=== PATIENT | male | born 1980 | race Two or more races ===

== ENCOUNTER 2018-11-08 10:52 | Observation (INO) | payer OTHER ==
[2018-11-08] MEDS ORDERED: TDAP ADULT 0.5 ML INJ (BOOSTRIX) IM ONE (11:08)
[2018-11-08] MEDS ORDERED: ceFAZolin 2 GM/DEXTROSE 100 ML IV ONE (11:13)
--- NOTE | 2018-11-08 11:13 | EDPHY ---
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 Not through and through. Occurred shortly prior to arrival. Last oral intake 7:00 a.m. consisting of piece of bread PRIMARY CARE PROVIDER:Worker's compensation REVIEW OF SYSTEMS: 10 systems reviewed and negative with the exception of the elements mentioned in the history of present illness PAST MEDICAL & SURGICAL HISTORY: No pertinent medical or surgical history SOCIAL HISTORY: Nonsmoker. 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 Appears anxious. 2) HEAD: Normocephalic, atraumatic 3) HEENT: Pupils equal, round, reactive to light bilaterally. Sclera anicteric. 4) NECK: Full range of motion, no meningeal signs. 5) LUNGS: Clear auscultation bilaterally, no wheezes, no rhonchi, no retractions. 6) HEART: Regular rate and rhythm, no murmur, no heave, no gallop. 7) ABDOMEN: No guarding, no rebound, no focal tenderness, negative McBurney's, negative Witt's, negative Rovsing's, negative peritoneal sign, 8) MUSCULOSKELETAL: Left upper extremity: White paint on hand. There is a non through and through puncture wound overlying the 3rd metacarpal. Unwilling or unable to perform range of motion secondary to pain. 9) BACK: No CVA tenderness, no midline vertebral tenderness, no fluctuance, no step-off, no obvious trauma, no visual or palpable abnormality. 10) SKIN: No rash, no petechiae. 11) Psychiatric: Patient is oriented X 3, there is no agitation. DIFFERENTIAL DIAGNOSIS: In no particular order including but not limited to fracture, high-pressure paint puncture injury, cellulitis - Personal History Current Tetanus/Diphtheria Vaccine: No Current Tetanus Diphtheria and Acellular Pertussis (TDAP): No - Medical/Surgical History Hx Asthma: No Hx Chronic Respiratory Disease: No Hx Diabetes: No Hx Cardiac Disease: No Hx Renal Disease: No Hx Cirrhosis: No Hx Alcoholism: No Hx HIV/AIDS: No Hx Splenectomy or Spleen Trauma: No - Social History Smoking Status: Never smoked Constitutional: Initial Vital Signs Temperature (C) 36.8 C 11/08/18 10:56 Heart Rate 64 11/08/18 10:56 Respiratory Rate 16 11/08/18 10:56 Blood Pressure 160/103 H 11/08/18 10:56 O2 Sat (%) 96 11/08/18 10:56 O2 Delivery Mode Room Air O2 (L/minute) 2 Allergies/Adverse Reactions: No Known Allergies Allergy (Unverified 11/08/18 10:56) Home Medications: Medication Instructions Recorded NK [No Known Home Meds] 11/08/18 Medical Decision Making - Diagnostics Imaging Results: Imaging Impressions Hand X-Ray 11/08/18 11:09 Impression: Soft tissue injury. Images reviewed myself ED Course/Re-evaluation: 11:11 a.m.: I have evaluated the patient discussed case with secondary supervising physician Dr. Parikh in the emergency department. On-call hand surgery has been paged. Patient remains NPO since 7:00 a.m. today. Will check the x-ray and administer iv antibiotics 11:17 a.m.: Consultation with on-call hand surgery Dr. Rashel Huggins who will plan taking the patient operating room this afternoon. Request hospitalist admit patient. - Data Points Laboratory Results: Laboratory Results 11/08/18 11:15 11/08/18 11:15 11/08/18 11/08/18 11:15 11:15 WBC 9.23 10^3/uL 10^3/uL (3.80-9.50) RBC 4.93 10^6/uL 10^6/uL (4.40-6.38) Hgb 15.2 g/dL g/dL (13.7-17.5) Hct 44.1 % % (40.0-51.0) MCV 89.5 fL fL (81.5-99.8) MCH 30.8 pg pg (27.9-34.1) MCHC 34.5 g/dL g/dL (32.4-36.7) RDW 12.7 % % (11.5-15.2) Plt Count 343 10^3/uL 10^3/uL (150-400) MPV 9.5 fL fL (8.7-11.7) Neut % (Auto) 76.7 % H % (39.3-74.2) Lymph % (Auto) 13.4 % L % (15.0-45.0) Gates % (Auto) 5.2 % % (4.5-13.0) Eos % (Auto) 3.9 % % (0.6-7.6) Baso % (Auto) 0.5 % % (0.3-1.7) Nucleat RBC Rel Count 0.0 % % (0.0-0.2) Absolute Neuts (auto) 7.07 10^3/uL H 10^3/uL (1.70-6.50) Absolute Lymphs (auto) 1.24 10^3/uL 10^3/uL (1.00-3.00) Absolute Monos (auto) 0.48 10^3/uL 10^3/uL (0.30-0.80) Absolute Eos (auto) 0.36 10^3/uL 10^3/uL (0.03-0.40) Absolute Basos (auto) 0.05 10^3/uL 10^3/uL (0.02-0.10) Absolute Nucleated RBC 0.00 10^3/uL 10^3/uL (0-0.01) Immature Gran % 0.3 % % (0.0-1.1) Immature Gran # 0.03 10^3/uL 10^3/uL (0.00-0.10) Sodium 137 mEq/L mEq/L (135-145) Potassium 3.9 mEq/L mEq/L (3.5-5.2) Chloride 103 mEq/L mEq/L (97-110) Carbon Dioxide 26 mEq/l mEq/l (22-31) Anion Gap 8 mEq/L mEq/L (6-14) BUN 17 mg/dL mg/dL (7-23) Creatinine 0.9 mg/dL mg/dL (0.7-1.3) Estimated GFR > 60 Glucose 124 mg/dL H mg/dL (70-100) Calcium 9.4 mg/dL mg/dL (8.5-10.4) Medications Given: Amlodipine Besylate (Norvasc) 2.5 mg PO DAILY DARBY Stop: 05/07/19 13:59 Last Admin: 11/08/18 14:08 Dose: 2.5 mg Hydromorphone HCl (Dilaudid) 0.2 mg IVP Q2HRS PRN PRN Reason: Pain, Severe Unable to Take PO Stop: 11/18/18 14:01 Last Admin: 11/08/18 14:12 Dose: 0.2 mg Lactated Ringer's (Lr) 1,000 mls @ 125 mls/hr IV CONT DARBY Stop: 05/07/19 12:29 Last Admin: 11/08/18 12:23 Dose: 1,000 mls Discontinued Medications Diphtheria/Tetanus/Acell Pertussis (Boostrix) 0.5 ml IM .ONCE ONE Stop: 11/08/18 11:09 Last Admin: 11/08/18 11:15 Dose: 0.5 ml Hydromorphone HCl (Dilaudid) 1 mg IVP EDNOW ONE Stop: 11/08/18 11:20 Last Admin: 11/08/18 11:23 Dose: 1 mg Hydromorphone HCl (Dilaudid) 1 mg IVP EDNOW ONE Stop: 11/08/18 12:11 Last Admin: 11/08/18 12:23 Dose: 1 mg Cefazolin Sodium/Dextrose (Ancef) 100 mls @ 200 mls/hr IV EDNOW ONE PRN Reason: Protocol Stop: 11/08/18 11:42 Last Admin: 11/08/18 11:23 Dose: 100 mls Lactated Ringer's (Lr) 1,000 mls @ 0 mls/hr IV ONCE ONE PRN Reason: KVO Stop: 11/08/18 14:56 Last Admin: 11/08/18 15:02 Dose: 1,000 mls Ondansetron HCl (Zofran) 4 mg IVP EDNOW ONE Stop: 11/08/18 11:20 Last Admin: 11/08/18 11:23 Dose: 4 mg Departure - Departure Disposition: [facility] Acute Clinical Impression: High pressure injury of left hand Condition: Fair
[2018-11-08] MEDS ORDERED: ONDANSETRON 4 MG/2 ML VIAL IVP ONE (11:19)
[2018-11-08] MEDS ORDERED: HYDROmorphONE/DILAUDID 1 MG/ML INJ IVP ONE ×2 (11:19→12:10)
[2018-11-08 11:35] LABS: PLATELET COUNT 343 10^3/uL (150-400)
[2018-11-08] MEDS ORDERED: LR 1,000 ML IV SCH (12:30)
[2018-11-08] MEDS ORDERED: BUPIVACAINE 0.5% 30 ML SDV ONE (13:22)
[2018-11-08] MEDS ORDERED: BACITRACIN 50,000 UNITS/10 ML SYR IRR ONE (13:22)
[2018-11-08] MEDS ORDERED: LIDOCAINE 1% 300 MG/30 ML SDV ONE (13:22)
[2018-11-08] MEDS: HYDROmorphONE/DILAUDID 1 MG/ML INJ IVP PRN ×3 (14:12→21:55)
[2018-11-08] MEDS ORDERED: ACETAMINOPHEN 325 MG TAB PO PRN (14:26)
[2018-11-08] MEDS ORDERED: ONDANSETRON DISINTEGRATING 4 MG TAB PO PRN (14:26)
[2018-11-08] MEDS ORDERED: LR 1,000 ML IV ONE (14:55)
[2018-11-08] MEDS ORDERED: MIDAZOLAM 2 MG/2 ML VIAL IVP ONE (15:03)
--- NOTE | 2018-11-08 15:03 | PDANEPAE ---
ANE History of Present Illness 37 yo for i and d hand ANE Past Medical History - Cardiovascular History Hx Hypertension: No Hx Arrhythmias: No Hx Chest Pain: No Hx Coronary Artery / Peripheral Vascular Disease: No Hx CHF / Valvular Disease: No Hx Palpitations: No - Pulmonary History Hx COPD: No Hx Asthma/Reactive Airway Disease: No Hx Recent Upper Respiratory Infection: No Hx Oxygen in Use at Home: No Hx Sleep Apnea: No Sleep Apnea Screening Result - Last Documented: Negative - Endocrine History Hx Diabetes: No - Chronic Pain History Chronic Pain: No ANE Review of Systems Review of Systems: - Exercise capacity METS (RN): 5 METS ANE Patient History - Allergies Allergies/Adverse Reactions: No Known Allergies Allergy (Unverified 11/08/18 10:56) - Home Medications Home medications: home medication list seen and reviewed Home Medications: NK [No Known Home Meds] 11/08/18 [Last Taken Unknown] - NPO status NPO Status: no food or drink >8 hours NPO Since - Liquids (Date): 11/08/18 NPO Since - Liquids (Time): 07:00 NPO Since - Solids (Date): 11/08/18 NPO Since - Solids (Time): 07:00 - Anes Hx Anes Hx: no prior problems - Smoking Hx Smoking Status: Never smoked ANE Labs/Vital Signs - Labs Result Diagrams: 11/08/18 11:15 11/08/18 11:15 - Vital Signs Blood Pressure: 153/100 Heart Rate: 62 Respiratory Rate: 16 O2 Sat (%): 97 Height: 5 ft 2.99 in Weight: 63.503 kg ANE Physical Exam - Airway Neck exam: FROM Mallampati Score: Class 2 Mouth exam: normal dental/mouth exam - Pulmonary Pulmonary: no respiratory distress - Cardiovascular Cardiovascular: regular rate and rhythym - ASA Status ASA Status: I ANE Anesthesia Plan Anesthesia Plan: GA w LMA
[2018-11-08] MEDS ORDERED: fentaNYL 100 MCG/2 ML INJ ONE ×2 (15:36→18:43)
[2018-11-08] MEDS ORDERED: PROPOFOL/EMULSION 500 MG/50 ML BOTTLE IV ONE (15:37)
--- NOTE | 2018-11-08 15:48 | GHP ---
[f rep st] HISTORY AND PHYSICAL DATE OF ADMISSION: 11/08/2018 CHIEF COMPLAINT: Left hand pain. HISTORY OF PRESENT ILLNESS: The patient is a 37-year-old gentleman with no significant past medical history. 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 He is Chinese- speaking only, and my interview was done through the lumber piler. He was using a spray gun to paint the inside of a client's home. The spray gun got blocked and he tried to open it and unplug it. The pressure of the gun went into the palm of his hand and it punctured, leaving a small tear and pain to his left palm area of his hand. It happened earlier this morning. He was given a dose of Ancef in the emergency room as well as a tetanus shot. He has some paint around the left eyelid, but he said the paint did not scatter into his eyes or any were else. It went directly into his left hand area. He denies any chest pain, shortness of breath, rashes, or sores. No changes in vision or hearing. Denies any cardiac issues. No shortness of breath. Appetite is good. PAST MEDICAL HISTORY: None. PAST SURGICAL HISTORY: None. FAMILY HISTORY: His mom is ill. She is age 65. She has diabetes and hypertension. His father is unknown. SOCIAL HISTORY: He is not in a relationship. He does not smoke. He drinks approximately 8 beers a week, but does not drink regularly. 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 He lives with his brother. ALLERGIES: No known allergies. MEDICATIONS: None. PHYSICAL EXAM: GENERAL: The patient is a 37-year-old male who does not appear to be in any type of acute distress. VITAL SIGNS: Blood pressure is 174/110, heart rate is 58, respiratory rate of 16, O2 saturation on 1 L 100%, temperature is 37 degree Celsius. EYES: Pupils are equal and react. He has some conjunctival injection noted throughout his left eye. EOMs are intact. ENT: Normal ears. Hearing intact. He has metal-type braces on his top teeth. NECK: Trachea is midline. CARDIOVASCULAR: He is bradycardic and regular rate and rhythm. No murmurs, rubs, or gallops noted. CHEST: Lungs normal respiratory effort. Clear without wheezing, rales, or rhonchi. ABDOMEN: Soft , nontender. SKIN: His left hand has a puncture wound approximately half an inch in length. His hand is slightly overall swollen. He has white pain scattered to the palm of the hand and on his fingertips. PSYCHIATRIC: He is alert and oriented. Normal mood, affect. Normal judgment, insight, and memory. MUSCULOSKELETAL: He has equal upper and lower extremity strength. DATA: Reviewed. A CBC shows white blood cell count of 9.23, hemoglobin 15.2, hematocrit of 44.1, platelet count 343. Chemistry: Sodium is 137, potassium 3.9, chloride of 103, CO2 of 26, BUN of 17, creatinine 0.9, glucose of 124, calcium of 9.5. A hand x-ray was performed, which shows a soft tissue injury without any fracture or dislocation. There is no subcutaneous gas or radiopaque foreign material in the soft tissues of the hand. PLAN/ASSESSMENT: 1. Left hand puncture wound with residual paint. Dr. Vieyra will see the patient later today and will take him to the operating room this afternoon. 2. Hypertension. Will give him a low dose of Norvasc. He has a family history of hypertension, and is not currently getting any type of treatment or followup care. I will ask for case management to get him aligned with followup care. 3. Hyperglycemia, stressed induced. 4. Deep venous thrombosis prophylaxis low risk. 5. Length of stay. He will require less than a 2-midnight stay, which will make him observation status. This can be further evaluated in the morning. /[id number]/MODL MTDD
[2018-11-08] MEDS ORDERED: ceFAZolin 1 GM VIAL ONE (16:14)
[2018-11-08] MEDS ORDERED: LIDO/EPI 1% **Not for Epidural 20 ML MDV ONE (17:42)
[2018-11-08] MEDS ORDERED: LIDOCAINE/EPINEPHRINE 0.5% 50 ML MDV ONE (17:50)
[2018-11-08] MEDS ORDERED: NALOXONE HCL 0.4 MG/ML INJ IVP PRN (18:39)
[2018-11-08] MEDS ORDERED: HYDROmorphONE/DILAUDID 1 MG/ML INJ IVP PRN (18:39)
[2018-11-08] MEDS ORDERED: ONDANSETRON 4 MG/2 ML VIAL IVP PRN (18:39)
[2018-11-08] MEDS: fentaNYL 100 MCG/2 ML INJ IVP PRN ×2 (18:45→18:56)
[2018-11-08] MEDS: IBUPROFEN 200 MG TAB PO PRN (19:42)
--- NOTE | 2018-11-08 22:29 | SOAPPROG ---
SOAP Progress Note Assessment/Plan: Assessment: HPI: 38 year old male with a left hand volar long finger metacarpal high-pressure paint gun injection injury with latex based paint earlier today (11/08/18) at work. PE: LUE: 3mm puncture wound overlying the volar aspect of the left long finger metacarpal +FDS, FDP, FPL, EPL, DI, PI +M/R/U SILT 2+ radial and ulnar pulses Assessment and Plan: 38 year old male with a left hand volar long finger metacarpal high-pressure paint gun injection injury with latex based paint earlier today (11/08/18) at work. -I have discussed with the patient the risks, benefits, alternative and complications associated with both non-operative and operative (specifically, left hand irrigation and debridement) forms of treatment and I am recommending emergent operative intervention -He fully understands the risks, benefits, alternative and complications associated with both forms of treatment and wishes to proceed with emergent operative intervention -He has signed the informed consent form for surgery and surgery will be performed as soon as the OR is available 11/08/18 15:30 Objective: Vital Signs Temp Pulse Resp BP Pulse Ox 36.8 C 74 16 143/92 H 96 11/08/18 21:59 11/08/18 21:59 11/08/18 21:59 11/08/18 21:59 11/08/18 21:59 11/07/18 11/08/18 11/09/18 05:59 05:59 05:59 Intake Total 1965 Output Total 650 Balance 1315 ICD10 Worksheet Patient Problems: Problems Problem Status Onset High pressure injury of left hand Acute
--- NOTE | 2018-11-08 22:31 | POSTOPPROG ---
Post Op Note Date of Operation: 11/08/18 Surgeon: Dong Huggins Polysomnograph Tech: None Anesthesiologist: Polly Lawrence MD Anesthesia: GET(General Endotracheal) Pre-op Diagnosis: Left hand pain-gun high-pressure injectio injury Post-op Diagnosis: Left hand pain-gun high-pressure injectio injury Indication: Left hand pain-gun high-pressure injectio injury Procedure: Left hand irrigation and debridement with CTR Inf/Abcess present in the surg proc area at time of surgery?: No Depth: Deep Incisional (Fascial) EBL: Minimal Complications: None Drains: Other (one 1/4 inch nu-gauze packing strip)
--- NOTE | 2018-11-08 22:33 | SOAPPROG ---
SOAP Progress Note Assessment/Plan: Assessment: HPI: 38 year old male now POD#0 from left hand irrigation and debridement after a high-pressure pain gun injection injury on 11/08/18 PE: LUE: Dressing and splint are CDI +FDS, FDP, FPL, EPL, DI, PI +M/R/U SILT < 2 second capillary refill Assessment and Plan: 38 year old male now POD#0 from left hand irrigation and debridement after a high-pressure pain gun injection injury on 11/08/18 -Remain in current splint and dressing for the next two days -Admit to medicine for intravenous antibiotics per ID recommendations -Keep the left hand clean and dry -Encourage immediate left thumb and finger ROM -Member of hand team to remove packing strip on 11/10/18 11/08/18 22:31 Objective: Vital Signs Temp Pulse Resp BP Pulse Ox 36.8 C 74 16 143/92 H 96 11/08/18 21:59 11/08/18 21:59 11/08/18 21:59 11/08/18 21:59 11/08/18 21:59 11/07/18 11/08/18 11/09/18 05:59 05:59 05:59 Intake Total 1965 Output Total 650 Balance 1315 ICD10 Worksheet Patient Problems: Problems Problem Status Onset High pressure injury of left hand Acute
[2018-11-08] MEDS: AMPICILLIN/SULBACTAM 3 GM in NS 100 ML IV SCH (23:44)
[2018-11-08] MEDS: oxyCODONE IR 5 MG TAB PO PRN (23:45)
--- NOTE | 2018-11-09 03:32 | GOP ---
[f rep st] OPERATIVE REPORT PATIENT: ANIBAL DEL TORO DATE OF SERVICE: 11/08/18 PATIENT DATE OF : 1980 SURGEON: Dong Huggins M.D. COMMAND POST SUPERINTENDENT: Carmela ANESTHESIA: General PRE-OPERATIVE DIAGNOSES: Left hand high-pressure paint gun injection injury (ICD-10 code T70.4xxA effects of high-pressure fluids) Left hand laceration with retained paint (ICD-10 code S61.422A left hand laceration with retained foreign body) POST-OPERATIVE DIAGNOSES: Left hand high-pressure paint gun injection injury (ICD-10 code T70.4xxA effects of high-pressure fluids) Left hand laceration with retained paint (ICD-10 code S61.422A left hand laceration with retained foreign body) OPERATIVE PROCEDURES: CPT code 40132 Left open carpal tunnel release CPT code 39034 Left index finger A1 anila release CPT code 90904 Left index finger drainage of tendon sheath CPT code 39971 Left long finger A1 anila release CPT code 48945 Left long finger drainage of tendon sheath CPT code 42429 Left ring finger A1 anila release CPT code 44243 Left ring finger drainage of tendon sheath CPT code 72217 Left small finger A1 anila release CPT code 14305 Left small finger drainage of tendon sheath CPT code 40616 Debridement of muscle and fascia, first 20 square cm or less Modifier 22 Increased procedural services CPT code 25622 Removal of foreign body in muscle or tendon sheath, deep or complicated Modifier 22 Increased procedural services CPT code 31816 Repair of an intermediate wound of the hand, 2.5cm or less CPT code 42719 Application of a short-arm splint EBL: 3cc COMPLICATIONS: None TOURNIQUET TIME: 88 minutes at 250 mmHg IMPLANTS: None BRIEF CLINICAL NOTE: This is a very pleasant 37 year old male who sustained a high-pressure paint gun injection injury to the volar aspect of his left long finger metacarpal earlier today (11/08/18) with latex-based pain. As such, I discussed the risks, benefits, alternatives, and complications associated with both non-operative (specifically, observation, antibiotics) and operative ( specifically, left hand irrigation and debridement) forms of treatment. The patient fully understood the risks, benefits, alternatives, and complications associated with both forms of treatment and wished to proceed with operative intervention as outlined above. The patient signed the informed consent form for surgery. OPERATIVE NOTE: On the day of surgery, all of the patients questions were answered. The patient was then transferred from the pre-operative area into the operating room and a formal, Time-Out procedure was performed. The patient was identified by name, medical record number, social security number, and date of . In addition, the patients left upper extremity was identified as the correct portion of the patients body for surgery with the patients left hand being identified as the correct portion of that extremity for surgery. The brachium was padded with webril and an 18-inch tourniquet was applied. The extremity was then prepped and draped in the normal sterile fashion. The extremity was exsanguinated with an Esmarch and the tourniquet was inflated to 250mm Hg. Jody-type incisions were marked out overlying the left palm which incorporated the entrance wound and extended proximally over the carpal tunnel. A number 15 blade was used to incise the skin. Meticulous hemostasis was obtained the subcutaneous plane with bipolar cautery. Full thickness skin flaps were elevated and tied back with 4-0 nylon sutures. The zone of soft tissue contamination included the palmar aspect of the left index, long, ring, and small fingers as well as the carpal tunnel. The following structures were identified and protected throughout the procedure: radial and ulnar neurovascular bundles to the index, long, ring, and small fingers, flexor sheaths, flexor tendons, the superficial palmar arch, the deep palmar arch, the median nerve, the lumbricals and the volar interosseous muscles. The carpal tunnel was released in its entirety to allow for complete visualization of all affected areas. The entire wound was then sharply surgically debrided and copiously irrigated with sterile normal saline mixed with bacitracin and polymixin. The retained paint was carefully removed from the wound. This portion of the procedure required significantly more time than is typical due to the large zone of contamination and due to the proximity of multiple vital structures. The flexor sheaths to the left index, long, ring, and small fingers were incised and the each flexor sheath was copiously irrigated with sterile normal saline. The tourniquet was deflated. After complete deflation of the tourniquet, all fingers and the thumb demonstrated brisk capillary refill and there was no evidence for arterial bleeding. Meticulous hemostasis was obtained throughout the wound with bipolar cautery. The skin and the laceration were re-approximated with a combination of 3-0 and 4-0 nylon sutures. The original entry wound was packed with inch iodoform nu-gauze. Betadine soaked gauze was applied to the wound followed by a dry, sterile dressing and short-arm volar slab splint. Once the splint was completely in place, the patient was reversed from anesthesia and transferred from the operating room table onto the post-operative gurney. He was then transferred from the operating room to the post-anesthesia care unit in stable condition. POST-OPERATIVE PLAN: The patient will remain in the current splint and dressing for the next two days. The patient will be admitted to the hospitalist team for pain control and observation. /[id number]/MODL MTDD
[2018-11-09] MEDS: IBUPROFEN 200 MG TAB PO PRN ×2 (04:29→11:52)
--- NOTE | 2018-11-09 05:16 | GCON ---
[f rep st] CONSULTATION Patient Name: ANIBAL DEL TORO N-Number: [id number] Date of : 1980 Patient Status: Inpatient Attending Doctor: Dionne Andujar MD Consulting Doctor: Dong Huggins MD Date of service: 11/08/18 CPT codes: CPT code 91729 ER visit requiring admission or initial inpatient visit, level three Modifier 57 Decision for surgery CHIEF COMPLAINT: Left hand high-pressure pain gun injection injury HISTORY OF PRESENT ILLNESS: This is a very pleasant 38 year old male who sustained a left hand volar long finger metacarpal high-pressure paint gun injection injury earlier today () with latex-based paint at work. PROBLEM LIST: Left hand high-pressure paint gun injection injury PAST MEDICAL HISTORY: None SURGERIES: None SOCIAL HISTORY: Denies tobacco, alcohol, or illicit drug use FAMILY HISTORY: Non-contributory CURRENT MEDICATIONS: None ALLERGIES: NKDA REVIEW OF SYSTEMS Constitutional: No unexpected weight loss, weight gain, fevers, chills, or fatigue. Eyes: No blurred or double vision, no eye pain, redness or swelling. ENT: No headaches, difficulty swallowing, nose bleeds, tinnitus, or earaches. Cardiovascular: No chest pain, palpitations, fainting or murmurs. Respiratory: No shortness of breath, wheezing, cough, of difficulty breathing. GI: No reflux, no nausea or vomiting, no constipation, diarrhea, or bloody stools. Genitourinary: No urinary frequency or urgency, no pain with urination. Skin: No skin changes, rashes, itching, or redness. Neurologic: No unsteadiness of gait, no dizziness, tremors, or seizures. Psychiatric: No nervousness, anxiety, depression, or hallucinations. Hematologic: No increased bleeding or easy bruising. Endocrine: No excessive thirst or urination and no heat or cold intolerances. Allergic: No reactions to food or environment. Musculoskeletal: See history of present illness. PHYSICAL EXAM VITAL SIGNS: General: No apparent distress. Orientation: Alert and oriented times three Mood and affect: Calm, appropriate. Gait and station: Normal gait and station. Skin: Warm, dry. Lymph: Non tender neck, axillary and inguinal nodes. Chest: Equal expansion, no pain with deep breaths, speaks in coherent sentences. Cardiovascular: Regular pulse. Abdomen: Soft, non-tender, no masses, no palpable hernias. Bilateral hand and wrist examination Inspection/palpation: Right: Normal resting posture. Left: 3mm puncture wound overlying the volar aspect of the left long finger metacarpal with white pain Wrist ROM Wrist Flexion: 90 / 70 / 90 Extension: 90 / 70 / 90 Forearm Supination: 0-80 / 0-80 / 0-80 Pronation: 0-80 / 0-80 / 0-80 Wrist/hand strength (R / L / Normal) ECRL/ECRB (C6): FCU/ECU: EDC: EPL (PIN): FPL (AIN): FDS (C8): FDP (C8): FDP-I (C8 / AIN): DI (C8-T1): PI (C8-T1): Wrist/hand sensory MABC : + / + / + LABC: + / + / + Median: + / decreased / + Palmar cutaneous: + / + / + Radial: + / + / + SBRN: + / + / + Ulnar: + / + / + DSBUN: + / + / + Vascular tests Radial pulse: 2+ / 2+ / 2+ Ulnar pulse: 2+ / 2+ / 2+ Medical decision making Data Imaging study: left hand radiographs Action: interpreted Interpretation / pertinent findings: diffuse foreign body infiltration surrounding the long and ring finger metacarpals, no fracture Diagnoses New diagnosis: left hand high-pressure paint gun injection injury Work-up planned: yes: see assessment and plan Assessment and plan This is a 38 year old male with a left hand high-pressure paint gun injection injury with latex based paint after injury earlier today (11/08/18) at work. -As such I have discussed with the patient the risks, benefits, alternatives, and complications associated with both non-operative (specifically, observation , antibiotics, local wound care) and operative (specifically, left hand irrigation and debridement) forms of treatment and I am recommending emergent operative intervention -The patient fully understands the risks, benefits, alternatives, and complications of both forms of treatment and the patient wishes to proceed with operative intervention as outlined above -He has signed the informed consent form for surgery and surgery will be performed as soon as the OR is available Time I have spent 80 minutes of [id number] time with the patient during this visit. Over fifty percent of this time was spent counseling the patient on the risks, benefits, alternatives, and complications of both non-operative and operative forms of treatment as outlined above. /[id number]/MODL MTDD
[2018-11-09] MEDS: AMPICILLIN/SULBACTAM 3 GM in NS 100 ML IV SCH ×2 (05:26→11:45)
--- NOTE | 2018-11-09 07:16 | POSTANESTH ---
Post Anesthetic Evaluation Cardiovascular Status: Normal, Stable Respiratory Status: Normal, Stable Level of Consciousness/Mental Status: Can Participate in Eval Pain Control: Adequate, Prn Tx Ordered Nausea/Vomiting Control: Adequate, Prn Tx Ordered Complications Possibly Related to Anesthesia: None Noted
[2018-11-09] MEDS: oxyCODONE IR 5 MG TAB PO PRN ×3 (08:02→16:54)
--- NOTE | 2018-11-09 14:08 | GDS ---
[f rep st] DISCHARGE SUMMARY DISCHARGE DIAGNOSIS: Left hand high-pressure gun injection injury. PROCEDURES: Left hand irrigation and debridement by Dr. Vieyra. 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 The spray gun was blocked, and he tried to open it. The press ure of the gun went into the palm of his hand and punctured it, leaving a small tear. In the ER, he was given a dose of Ancef and a tetanus shot. HOSPITAL COURSE BY PROBLEM: High-pressure left hand palm injury: Status post I and D, and left open carpal tunnel release. There was no pus observed. Pain was controlled on Advil and oxycodone. We will provide Augmentin for 2 days for perioperative treatment. Follow up with Dr. Vieyra 11/10/2018 for a dressing change. DISPOSITION: The patient is stable for discharge home. MEDICATIONS: Augmentin, oxycodone, and Advil. FOLLOWUP: Follow up with Dr. Vieyra 11/10/2018. Visit was done with an inpatient site interpreter, as w ell as discharge instructions. PHYSICAL EXAMINATION: VITAL SIGNS: Temperature 36.8, blood pressure 136/82, heart rate in the 70s, respirations 16, and 94% on room air. GENERAL: He is lying in bed, in no acute distress. HEENT: P ERRLA. Moist mucous membranes. CV: Regular rate and rhythm. LUNGS: Clear. ABDOMEN: Soft, nonte nder, and nondistended. Positive bowel sounds. : No Max. MUSCULOSKELETAL: Left hand is dress ed and wrapped in an Kristofer bandage with some serosanguineous drainage. NEUROLOGICAL: 2 through 12 int act. PSYCHIATRIC: Alert and oriented x3. TIME SPENT ON DISCHARGE: Greater than 30 minutes at bedside counseling the patient on medications an d followup along with discussing case with Dr. Vieyra. /[id number]/MODL
[2018-11-09 15:12] VITALS: BP 119/79
--- NOTE | 2018-11-09 15:50 | ASMTCMCOM ---
CM Note CM Note Notes: Spoke w/RN, pt admitted for injury at work with power paint tool. No fractures but soft tissue injury, pt lives with his brother. Anticipate he will dc home w/brother when medically stable. CM available for any changes. DC Plan: Independent Date Signed: 11/09/2018 03:49 PM Electronically Signed By:Racheal Beal RN
--- NOTE | 2018-11-09 15:52 | ASMTLACE ---
[place] Length of stay for Answers: 1 day current admission Acuity / Level of Answers: No Care: Did the patient have an inpatient admission? # of Emergency department Answers: 1-2 visits in the last 6 months Score: 2 Date Signed: 11/09/2018 03:52 PM Electronically Signed By:Racheal Beal RN
== END 2018-11-09 16:56 | disposition home or self-care (01) ==
LOC: EDBD 11:50 → F3N 13:13
PROVIDERS: ADMIT Internal Medicine; ATTEND Internal Medicine
PROC: 0JQK0ZZ Repair Left Hand Subcutaneous Tissue and Fascia, Open Approach (ICD-10-PCS; principal; 2018-11-08 15:15)
PROC: 0KCD0ZZ Extirpation of Matter from Left Hand Muscle, Open Approach (ICD-10-PCS; principal; 2018-11-08 15:15)
DX: T70.4XXA Effects of high-pressure fluids, initial encounter (principal); S61.422A Laceration with foreign body of left hand, initial encounter; Y93.H9 Activity, other involving exterior property and land maintenance, building and construction; Y92.019 Unspecified place in single-family (private) house as the place of occurrence of the external cause; Y99.0 Civilian activity done for income or pay; Z23 Encounter for immunization
CPT/HCPCS: 12041; 20525; 64721; 73130; 90471; 90472; 96376; 99285; G0378; G0008; J0295; J0690; J1170; J2250; J2405; J2704; J3010; L3984